=== PATIENT | female | born 1945 | race Native Hawaiian/Other Pacific Islander ===

== ENCOUNTER 2021-06-14 14:27 | Emergency (ER) | payer OTHER, MEDICARE ==
[~2021-06-14] VITALS: Ht 162.6 cm; Wt 68.1 kg
[2021-06-14 14:40] VITALS: BP 143/68; TEMP 97.9
[2021-06-14 15:15] LABS: PLATELET COUNT 156 K/uL (152-353)
[2021-06-14 15:22] LABS: POTASSIUM 4.2 mmol/L (3.6-5.2)
[2021-06-14] MEDS ORDERED: VIACTIV CALCIUM PO (20:06)
[2021-06-14] MEDS ORDERED: LEVO0.1T6 PO (20:08)
[2021-06-14] MEDS ORDERED: MEMANTINE HYDRO28 MG PO (20:11)
[2021-06-14] MEDS ORDERED: ASPIRIN PO (20:13)
[2021-06-14] MEDS ORDERED: MIRALAX17 GM PO (20:14)
[2021-06-15] MEDS ORDERED: RISP0.5T2 PO (04:42)
[2021-06-15] MEDS ORDERED: FISHOIL PO (04:46)
[2021-06-15] MEDS ORDERED: VITAL PO (04:46)
[2021-06-15] MEDS ORDERED: BIOTIN5000 MC2 PO (04:47)
[2021-06-15] MEDS ORDERED: [UNRECOGNIZED DRUG - OTHER] PO (04:50)
[2021-06-15] MEDS ORDERED: PEPTO-BISM525 MG/15 PO (04:54)
[2021-06-15] MEDS ORDERED: VITAMIN D32000 UNI1 PO (04:56)
[2021-06-15] MEDS ORDERED: ZINC220 MG PO (04:57)
[2021-06-15] MEDS ORDERED: CYAN10009 IM (04:58)
[2021-06-15] MEDS ORDERED: [UNRECOGNIZED DRUG - OTHER] PO (05:04)
[2021-06-15] MEDS ORDERED: CALCIUM,MAG, ZINC PO (05:05)
[2021-06-15] MEDS ORDERED: MELATONIN10 M2 PO (08:42)
[2021-06-15] MEDS ORDERED: VITAMIN C1000 MG PO (09:00)
== END 2021-06-14 16:03 | disposition still patient (30) ==
LOC: ED 14:27
PROVIDERS: Emergency Medicine Emergency Medical Services
DX: R46.89 Other symptoms and signs involving appearance and behavior (principal); F32.89 Other specified depressive episodes; Z11.52 Encounter for screening for COVID-19; Z04.6 Encounter for general psychiatric examination, requested by authority
CPT/HCPCS: 80053; 80307; 80329; 81000; 85027; 87635; 93005; 99283; U0003